=== PATIENT | female | born 1960 | race Two or more races ===

== ENCOUNTER 2017-04-05 19:32 | Emergency (ER) | payer SELFPAY ==
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
== END 2017-04-05 19:52 | disposition disaster alternative care site (69) ==
LOC: GACC 19:32
PROC: 2W2CX4Z Dressing of Right Lower Arm using Bandage (ICD-10-PCS; principal; 2017-04-05)
DX: T22.111A Burn of first degree of right forearm, initial encounter (principal); I10 Essential (primary) hypertension; E11.9 Type 2 diabetes mellitus without complications; J44.9 Chronic obstructive pulmonary disease, unspecified; F17.210 Nicotine dependence, cigarettes, uncomplicated; Z90.710 Acquired absence of both cervix and uterus; Z90.49 Acquired absence of other specified parts of digestive tract; Z79.4 Long term (current) use of insulin; Z79.84 Long term (current) use of oral hypoglycemic drugs; Z79.899 Other long term (current) drug therapy; X17.XXXA Contact with hot engines, machinery and tools, initial encounter